=== PATIENT | female | born 1990 ===

== ENCOUNTER 2018-01-26 16:12 | Emergency (ER) | payer MEDICARE ==
[~2018-01-26] VITALS: Ht 152.4 cm; Wt 58.5 kg
[2018-01-26 17:39] LABS: CLARITY,URINE SL CLOUDY (CLEAR); COLOR,URINE YELLOW (YELLOW)
[2018-01-26 17:40] LABS: LEUKOCYTE ESTERASE ,URINE TRACE (NEGATIVE); NITRITE,URINE NEGATIVE (NEGATIVE); PROTEIN,URINE DIPSTICK NEGATIVE (NEGATIVE)
[2018-01-26 17:41] LABS: BILIRUBIN,URINE NEGATIVE (NEGATIVE); KETONES,URINE NEGATIVE (NEGATIVE); URINE UROBILINOGEN 0.2 mg/dL (0.2 - 1)
[2018-01-26 18:00] LABS: EPITHELIAL CELLS,URINE MANY /LPF
== END 2018-01-26 18:04 | disposition home or self-care (01) ==
LOC: ER 16:12
DX: R50.9 Fever, unspecified (principal); J01.00 Acute maxillary sinusitis, unspecified
CPT/HCPCS: 81001; 87086; 87400; 99282